=== PATIENT | male | born 1970 | race Caucasian/White ===

== ENCOUNTER → 2018-07-24 | Outpatient (CLI) | payer OTHER ==
[~2018-07-24] MED LIST: ATEN25
== END | disposition home or self-care (01) ==
LOC: PLD 07:33 → LAB SHORT 07:33
DX: L57.0 Actinic keratosis (principal)
CPT/HCPCS: 88305

== ENCOUNTER 2020-06-17 08:09 | Inpatient (IN) | payer OTHER ==
[~2020-06-17] VITALS: Ht 175.3 cm; Wt 87.7 kg
[2020-06-17 08:55] LABS: BASOPHILS ABSOLUTE AUTO 0.03 K/mm3 (0.00-0.23); BASOPHILS PERCENT AUTO 0 % (0-2); EOSINOPHILS ABSOLUTE AUTO 0.01 K/mm3 (0.00-0.68); EOSINOPHILS PERCENT AUTO 0 % (0-6); Hematocrit 45.8 % (37.0-53.0); IMMATURE GRAN ABSOLUTE AUTO 0.05 K/mm3 (0.00-0.10); IMMATURE GRAN PERCENT AUTO 0 % (0-1); LYMPHOCYTES ABSOLUTE AUTO 1.22 K/mm3 (0.84-5.20); LYMPHOCYTES PERCENT AUTO 11 % (21-46); MONOCYTES ABSOLUTE AUTO 0.51 K/mm3 (0.16-1.47); MONOCYTES PERCENT AUTO 5 % (4-13); Mean Corpuscular HGB 29.3 pg (26.0-34.0); Mean Corpuscular HGB Conc 34.9 g/dL (31.5-36.5); Mean Corpuscular Volume 84 fL (80-100); Mean Platelet Volume 9.6 fL (9.1-12.4); NEUTROPHILS ABSOLUTE AUTO 9.31 K/mm3 (1.96-9.15); NEUTROPHILS PERCENT AUTO 84 % (41-73); Platelet Count 328 K/mm3 (150-400); RDW Coefficient Variation 11.9 % (11.7-14.2); RDW Standard Deviation 36.1 fL (35.1-46.3); Red Blood Cell Count 5.47 M/mm3 (4.30-5.90); White Blood Cell Count 11.13 K/mm3 (4.00-11.30)
[2020-06-17 09:14] LABS: Alanine Aminotransfer (ALT/SGP 51 U/L (12-78); Albumin, Blood 4.5 g/dL (3.4-5.0); Albumin/Globulin Ratio 1.1 (0.8-1.8); Alk Phos 77 U/L (50-136); Anion Gap 14 mmol/L (6-16); Aspartate Aminotrans (AST/SGOT 32 U/L (12-37); Bilirubin, Total 0.8 mg/dL (0.1-1.0); Blood Urea Nitrogen 18 mg/dL (8-24); Bun/Creatinine Ratio 22.3 (12.0-20.0); CO2, Blood 19 mmol/L (21-32); Calcium, Blood 9.2 mg/dL (8.5-10.1); Chloride, Blood 108 mmol/L (98-108); Creatinine, Blood 0.81 mg/dL (0.60-1.20); Glomerular Filtration Rate >60 (60-); Glucose, Blood 139 mg/dL (70-99); Potassium, Blood 3.4 mmol/L (3.5-5.5); Sodium, Blood 141 mmol/L (136-145); Total Protein, Blood 8.5 g/dL (6.4-8.2)
[2020-06-17 10:15] LABS: Source, Urine Clean Catch
[2020-06-17 10:28] LABS: Appearance, Urine Clear (Clear); Bilirubin, Urine Neg (Neg); Blood, Urine Neg (Neg); Color, Urine Yellow (P-Yellow); Glucose Qualitative, Urine Neg (Neg); Ketones, Urine 4+ (Neg); Leukocyte Esterase, Urine Neg (Neg); Nitrite, Urine Neg (Neg); Protein, Urine 1+ (Neg); Specific Gravity, Urine 1.005 (1.003-1.022); Urobilinogen, Urine NORM (Normal)
[2020-06-17 11:20] LABS: Base Excess Venous -4.4 mmol/L; Bicarbonate Venous 20.9 mmol/L (24.0-30.0); PCO2 Venous 41.6 mmHg (38-42); PO2 Venous 81.6 mmHg (38-42); pH Blood Venous 7.32 (7.34-7.37)
[2020-06-17] MEDS ORDERED: EFFEXOR XR150 MG PO (11:39)
[2020-06-17] MEDS ORDERED: LISI20 PO (11:39)
[2020-06-17 12:12] LABS: Influenza A, PCR NEGATIVE (NEGATIVE); Influenza B, PCR NEGATIVE (NEGATIVE); Resp Syncytial Virus, PCR NEGATIVE (NEGATIVE); SARS-Cov-2 (COVID-19) PCR, MMC NEGATIVE (NEGATIVE)
--- NOTE | 2020-06-17 13:29 | NUR ---
History, Chart, Medications and Allergies reviewed before start of procedure.Pre-Op teaching done. Pt verbalizes understanding.
--- NOTE | 2020-06-17 16:00 | NUR ---
ASSUMED CARE: PT ARRIVED FROM OR TO ROOM 208. THREE LAPRASCOPIC SITES WITH STERI STRIPS. PT STATES HE FEELS MUCH BETTER. AWAITING TELE BOX. IVF AND KCL RUNNING AT THIS TIME. AT BEDSIDE
--- NOTE | 2020-06-17 16:42 | NUR ---
PT REQUESTING HOME MEDS AND DIET. SPOKE WITH DR BOURGEOIS WHO OK'D CLEAR LIQUIDS. CALL TO DR WREN REGARDING PT'S HOME MEDS. REORDERED EFFEXOR BUT DID NOT WANT TO RESTART BP MEDS AT THIS TIME DUE TO BEING POST OP
--- NOTE | 2020-06-18 03:19 | NUR ---
Pt gives permission to particpate in care
--- NOTE | 2020-06-18 04:31 | NUR ---
SHIFT SUMMARY POD#1 EXP LAP WITH LYSIS ADHESIONS. AAOX4. DISCOMFORT CONTROLLED WITH 0.5MG IV DILAUDID X2. NO NAUSEA/EMESIS. ABD INCISION WITH STERI STRIPS, SCANT AMOUNT SS DRY DRAINAGE NOTED THIS SHIFT, NONE THIS SHIFT. PT SBA UP TO RESTROOM. GOOD PO FLUID INTAKE + URINE OUTPUT. PT RESTED WELL T/O NOC SHIFT. NO ACUTE CHANGES THIS SHIFT. PT CURRENTLY RESTING IN BED WITH CALL LIGHT IN REACH.
[2020-06-18 04:36] LABS: BASOPHILS PERCENT AUTO 0 % (0-2); EOSINOPHILS PERCENT AUTO 0 % (0-6); Hematocrit 36.9 % (37.0-53.0); Hemoglobin 12.4 g/dL (13.5-17.5); IMMATURE GRAN ABSOLUTE AUTO 0.02 K/mm3 (0.00-0.10); IMMATURE GRAN PERCENT AUTO 0 % (0-1); LYMPHOCYTES ABSOLUTE AUTO 1.59 K/mm3 (0.84-5.20); LYMPHOCYTES PERCENT AUTO 26 % (21-46); MONOCYTES PERCENT AUTO 8 % (4-13); Mean Corpuscular HGB 28.8 pg (26.0-34.0); Mean Corpuscular HGB Conc 33.6 g/dL (31.5-36.5); Mean Corpuscular Volume 86 fL (80-100); Mean Platelet Volume 9.7 fL (9.1-12.4); NEUTROPHILS PERCENT AUTO 66 % (41-73); Platelet Count 241 K/mm3 (150-400); RDW Coefficient Variation 12.4 % (11.7-14.2); RDW Standard Deviation 38.8 fL (35.1-46.3); White Blood Cell Count 6.21 K/mm3 (4.00-11.30)
[2020-06-18 04:52] LABS: Anion Gap 5 mmol/L (6-16); Blood Urea Nitrogen 11 mg/dL (8-24); Bun/Creatinine Ratio 15.5 (12.0-20.0); CO2, Blood 26 mmol/L (21-32); Calcium, Blood 7.7 mg/dL (8.5-10.1); Chloride, Blood 110 mmol/L (98-108); Creatinine, Blood 0.71 mg/dL (0.60-1.20); Glomerular Filtration Rate >60 (60-); Glucose, Blood 104 mg/dL (70-99); Potassium, Blood 3.9 mmol/L (3.5-5.5); Sodium, Blood 141 mmol/L (136-145)
--- NOTE | 2020-06-18 10:47 | NUR ---
06/18/20 1047 Leticia Mazariegos VERIFICATIONS: EDIT CHART.
--- NOTE | 2020-06-18 12:23 | NUR ---
DISCHARGE SUMMARY PT POD #1 FOR AN EXPLORATORY LAP W/LYSIS OF ADHESIONS FOR A CLOSED LOOP SBO. PT A/O #4; PLEASANT AND COOPERATIVE WITH CARE. IND IN THE ROOM. VOIDING WITHOUT DIFFICULTY BUT HAS NOT HAD A BM. CONFIDENT THAT HE WILL BE ABLE TO HAVE A BM AT HOME. BOWEL TONES HYPERACTIVE. MEDICATED FOR PAIN X1 THIS SHIFT. EDUCATED ON POST OP CARE AND EXHIBITS UNDERSTANDING. DISCHARGED WITH A PRESCRIPTION FOR OXY. VSS; DISCHARGE HOME WITH .
== END 2020-06-18 12:45 | disposition home or self-care (01) | DRG 337 ==
LOC: ER 08:09 → SURS 11:05
PROVIDERS: Emergency Medicine; Nurse Practitioner Acute Care; Surgery; ADMIT Internal Medicine
PROC: 0DN80ZZ Release Small Intestine, Open Approach (ICD-10-PCS; principal; 2020-06-17 13:45)
DX: K56.609 Unspecified intestinal obstruction, unspecified as to partial versus complete obstruction (principal); I10 Essential (primary) hypertension; F41.9 Anxiety disorder, unspecified; E78.5 Hyperlipidemia, unspecified; Z20.822 Contact with and (suspected) exposure to COVID-19
CPT/HCPCS: 0241U; 36415; 74177; 80048; 80053; 82803; 83605; 83735; 85025; 93005; 93010; 96361; 96374-59; 96375; 99285-25; A9270; J0330; J0690; J1100; J1170; J2270; J2405; J2704; J3010; J3480; J7030; J7120; Q9967